=== PATIENT | female | born 1980 | race Caucasian/White ===

== ENCOUNTER 2023-05-01 01:08 | Emergency (ER) | payer MEDICAID, SELFPAY ==
[2023-05-01 01:19] VITALS: BP 184/103; RESP 16; TEMP 36.5; O2SAT 98; BMI 44.5
--- NOTE | 2023-05-01 02:43 | ED.GENADULT ---
HPI - General Adult General Chief complaint: Eye Problems Stated complaint: Swollen L Eye Time Seen by Provider: 05/01/23 01:38 Source: patient Mode of arrival: ambulatory Limitations: no limitations History of Present Illness HPI narrative: Patient presents with a 3 day history of mild swelling to left upper eyelid, no visual changes, no drainage or crusting, no fever or headache. It is unclear why she did not seek medical care during typical hours and presents to the emergency department now in the middle of the night. No trauma or injury. She reports that her symptoms started a few days after using makeup for the 1st time in quite some time. No prior history of similar symptoms. No allergy symptoms, difficulty breathing, swelling of the lips or mouth. Has not tried any interventions to help with her symptoms. Does have some focal tenderness to the middle of the left upper eyelid. She reports her poss medical history is essential benign except for hypothyroidism, replaced on her only medication which is levothyroxine, no drug allergies. ROS is notable for the eye symptoms only, otherwise denies any other generalized, HEENT or skin concerns. Related Data Home Medications Medication Instructions Recorded Confirmed levothyroxine 112 mcg tablet 112 mcg PO DAILY 05/01/23 05/01/23 Allergies Allergy/AdvReac Type Severity Reaction Status Date / Time No Known Drug Allergies Allergy Verified 05/01/23 01:19 Exam Const: Vital Signs, click to edit/add: Vital Signs - 24 hr 05/01/23 01:19 Temperature 97.7 F Respiratory Rate 16 Blood Pressure [Ri ght Upper Arm] 184/103 H Pulse Oximetry 98 Oxygen Delivery Me thod Room Air Common normals: no apparent distress General appearance: cooperative and comfortable HENMT: Common normals: normocephalic, head/scalp atraumatic and external nose normal Head and scalp: normocephalic and atraumatic Nose: external nose normal Mouth: oral and palatal mucosa normal Throat: posterior oropharynx normal Eye: Other: Pupils equal round, reactive to light. Normal visual gaze. Right eye lid, lashes conjunctiva and sclera are all normal. The left eye has normal-appearing conjunctiva and sclera. The left upper lid has mild to moderate swelling with some very slight edema and focal tenderness at the center of the upper lash line with a very slight enlarged area consistent with a chalazion. No discharge, crusting or flaking. There is some slight watery discharge at the lateral canthus of the eye. Normal extraocular movements with no deficits. Neck & C-Spine: General: normal visual inspection Resp: Common normals: normal respiratory effort Effort & inspection: able to speak in complete sentences Psych: Common normals: speech normal Speech: normal speech Insight: insight good Judgement: judgment good Skin: Common normals: no rashes or lesions noted General skin exam: no rashes or lesions noted Course Course ED Course: Mild lid swelling likely consistent with a chalazion. No signs of severe infection, allergic reaction or other complication. Does not wear contacts. Discussed warm compresses, may take several weeks to fully resolve. Short course of gentamicin antibiotic drops provided, 1st dose given in ED. Apply 1 drop 3 times daily for the next week. Make a follow-up appointment with an eye doctor if symptoms do not improve in a few weeks. Any loss of vision or severe worsening, come back to the emergency department. She verbalizes understanding and agreement. Vital Signs Vital signs: Initial Vital Signs Temperature 97.7 F 05/01/23 01:19 Temperature Source Temporal Artery Scan 05/01/23 01:19 Respiratory Rate 16 05/01/23 01:19 Blood Pressure 184/103 H 05/01/23 01:19 Blood Pressure Mean 130 H 05/01/23 01:19 Pulse Oximetry 98 05/01/23 01:19 Oxygen Delivery Method Room Air 05/01/23 01:19 Vital Signs Temperature 97.7 F 05/01/23 01:19 Respiratory Rate 16 05/01/23 01:19 Blood Pressure 184/103 H 05/01/23 01:19 Pulse Oximetry 98 05/01/23 01:19 Oxygen Delivery Method Room Air 05/01/23 01:19 Temperature 97.7 F 05/01/23 01:19 Respiratory Rate 16 05/01/23 01:19 Blood Pressure 184/103 H 05/01/23 01:19 Pulse Oximetry 98 05/01/23 01:19 Oxygen Delivery Method Room Air 05/01/23 01:19 Discharge Plan Discharge Clinical Impression: Chalazion of left upper eyelid Patient Disposition: Home, Self-Care Condition: Stable Instructions: Chalazion (ED) Additional Instructions: As we discussed, there are no signs of significant problems with the visual part of the eye. You have a common inflammation of the glans that lubricate the eyelashes in the left upper eyelid. These take several weeks to go away. They are mild inflammation. They can become infected. To help, I have put you on antibiotic drops. You use this 3 times daily for the next week. Prior to inserting the drops, use a warm washcloth with baby shampoo to wash the lid and let soak until the washcloth cools and then gently wipe away any crusted material. Apply the drops after cleansing the lid. Avoid mascara or any other eye makeup for the next week. If your symptoms fail to improve after a couple of weeks, make an appointment with the eye doctor. If you have any sudden loss of vision, please come back to the emergency department. These do not typically affect vision or cause any significant real dangers. Activity Level: No Restrictions Discharge Diet: Regular Prescriptions: No Action levothyroxine 112 mcg tablet 112 mcg PO DAILY Stand Alone Forms: [employer] Info Instructions
[2023-05-01] MEDS: GENTAMICIN 0.3% OPHTH 1 DROP EYE-LEFT (02:58)
== END 2023-05-01 02:56 | disposition home or self-care (01) ==
LOC: ED 02:49
PROVIDERS: Emergency Provider Family Medicine
DX: H00.14 Chalazion left upper eyelid (principal)
CPT/HCPCS: 99283